=== PATIENT | male | born 1965 | race American Indian/Alaskan Native ===

== ENCOUNTER 2020-12-21 12:44 | Emergency (ER) | payer BC ==
[2020-12-21 13:24] VITALS: BP 100/71
[2020-12-21 14:27] LABS: Bilirubin,Urine NEG (Negative); Blood,Urine NEG (Negative); Color,Urine Yellow (Yellow); Mucus,Urine 2+ /HPF; Protein,Urine <15 mg/dL mg/dL (Negative)
[2020-12-21 14:57] LABS: Basophils # (Auto) 0.1 K/mm3 (0.0-0.1); Basophils % (Auto) 0.9 % (0.0-1.8); Eosinophils # (Auto) 0.1 K/mm3 (0.0-0.4); Hematocrit 51.6 % (35.5-45.6); Hemoglobin 17.2 gm/dl (11.8-15.2); Lymphocytes # (Auto) 3.4 K/mm3 (1.2-5.4); Lymphocytes % (Auto) 39.9 % (13.4-35.0); Mean Corpuscular HGB Conc 33 % (32-34); Mean Corpuscular Volume 87 fl (84-94); Monocytes # (Auto) 0.5 K/mm3 (0.0-0.8); Monocytes % (Auto) 5.8 % (0.0-7.3); Platelet Count 282 K/mm3 (140-440); Red Blood Count 5.95 M/mm3 (3.65-5.03); Red Cell Distribution Width 13.7 % (13.2-15.2)
[2020-12-21 15:10] LABS: Albumin 4.3 g/dL (3.9-5); Calcium 9.8 mg/dL (8.4-10.2)
[2020-12-21] MEDS ORDERED: LIDOCAINE-MPF (1%) 10 MG/1 ML VIAL 5 ML INFILTRATI ONE (18:26)
--- NOTE | 2020-12-21 18:31 | Emergency Department Report ---
ED General Adult HPI - General Chief complaint: Abdominal Pain Stated complaint: STOMACH PAIN Time Seen by Provider: 12/21/20 18:26 Source: patient Mode of arrival: Ambulatory Limitations: No Limitations - History of Present Illness Initial comments: 55-year-old male patient presents to the emergency department with complaints of abdominal pain for 1 month. Patient states the pain is generalized, intermittent, without exacerbating or relieving factors identified. Pain is no different today. States he came to the emergency department because "he was sick of going to work feeling this way." Patient does not have a primary care provider. Patient is sexually active. Denies fever, chills, nausea, vomiting, diarrhea, constipation, black/bloody stools, testicular pain/swelling, painful urination, penile discharge, hematuria, night sweats, unintentional weight loss. Denies all other complaints at this time. - Related Data Previous Rx's Medication Instructions Recorded Last Taken Type Doxycycline Hyclate 100 mg PO BID 7 Days tablet. 12/21/20 Unknown Rx Allergies Allergy/AdvReac Type Severity Reaction Status Date / Time No Known Allergies Allergy Unverified 12/21/20 13:20 ED Review of Systems ROS: Stated complaint: STOMACH PAIN Other details as noted in HPI Other: GENERAL: Negative for fever, chills, weight change, anorexia, fatigue. ENT: Negative for ear pain, difficulty hearing, sore throat, nasal congestion, epistaxis. CARDIOVASCULAR: Negative for chest pain, palpitations, lower extremity swelling. PULMONARY: Negative for cough, dyspnea, wheezing, orthopnea, cyanosis. GASTROINTESTINAL: Positive for abdominal pain. MUSCULOSKELETAL: Negative for joint pain, joint swelling, myalgias, back pain, neck pain. NEUROLOGICAL: Negative for headache, seizure, syncope, paresthesias, weakness. INTEGUMENTARY: Negative for erythema, rash, diaphoresis, laceration, ecchymosis. HEMATOLOGICAL: Negative for hemoptysis, hematemesis, hematochezia, hematuria. PSYCHIATRIC: Negative for hallucinations, suicidal ideation, homicidal ideation, anxiety, depression. ED Past Medical Hx - Past Medical History Previous Medical History?: No - Surgical History Additional Surgical History: BACK/ NECK AND FOREHEAD SURGERY - Medications Home Medications: Home Medications Medication Instructions Recorded Confirmed Last Taken Type Doxycycline Hyclate 100 mg PO BID 7 Days tablet. 12/21/20 Unknown Rx ED Physical Exam - General Limitations: No Limitations - Other Other exam information: General: Awake and alert. No acute distress. Head: Atraumatic, normocephalic. Eyes: EOMI. Pupils are equal and round. Normal sclera and conjunctiva. ENT: Oral mucosa is moist. Normal pharyngeal exam. Neck: Supple. No lymphadenopathy. Pulmonary: No respiratory distress. Clear to auscultation bilaterally. Cardiac: Regular rate and rhythm. Pulses are palpable and equal bilaterally. No lower extremity cyanosis or edema. Skin: Warm and dry. No rashes. Abdomen: Soft, non-tender, non-protuberant. No guarding, rigidity, or rebound. Bowel sounds are normal. No organomegaly or masses noted. Back: Normal alignment. No CVA tenderness. Extremities: Symmetrical. Full range of motion intact. Neurological: Alert and oriented, appropriately interactive, no focal deficits. Psych: Cooperative. Appropriate mood and affect. Speech is evenly metered. Thoughts are logically construed. ED Course Vital Signs 12/21/20 13:23 Temperature 99.0 F Pulse Rate 73 Respiratory 18 Rate Blood Pressure 100/71 O2 Sat by Pulse 97 Oximetry ED Medical Decision Making - Lab Data Result diagrams: 12/21/20 13:56 12/21/20 13:56 - Medical Decision Making Differential diagnosis including but not limited to: pyelonephritis, prostatitis, nephrolithiasis, urinary tract infection, sexually transmitted infection Patient presents to the emergency department with complaints of intermittent generalized abdominal pain for 1 month, unchanged today. He is afebrile. Vital signs are stable. Abdominal exam is benign. Labs are unremarkable. Urinalysis with evidence of UTI. No fever, nausea, vomiting, or CVA tenderness to suggest pyelonephritis. Patient is sexually active. He does not have a history of prior UTI's or genitourinary issues. STD testing is currently unavailable at this facility. Urine culture sent. Given IM Rocephin and discharged home with prescription for Doxycycline per current CDC guidelines. Referred to primary care provider for close outpatient follow-up and repeat urinalysis. Also referred to [facility] for STD testing and treatment as in dicated. Patient expressed understanding and is agreeable to plan of care. Strict return precautions provided. History, exam, diagnostic testing, and current condition do not suggest worrisome pathology to warrant further testing, continued ED treatment, admission, or surgical evaluation at this point. Given the low probability of a significant medical illness, it would be more likely to result in harm than benefit to perform further testing at this stage. Discussed findings, presumptive diagnosis, need for follow-up and specific signs/symptoms that should prompt immediate return to the emergency department. Instructions were explained in detail to the patient in addition to giving written discharge information. Patient expressed understanding and was given the opportunity to ask questions, all of which were satisfactorily answered prior to discharge home. Critical care attestation.: If time is entered above; I have spent that time in minutes in the direct care of this critically ill patient, excluding procedure time. ED Disposition Clinical Impression: Nonspecific urethritis Disposition: 01 HOME / SELF CARE / HOMELESS Is pt being admited?: No Does the pt Need Aspirin: No Condition: Stable Instructions: Urethritis, Adult Additional Instructions: Take Tylenol every 4 hours and Motrin every 8 hours as needed for pain. Take Doxycycline with food as directed. Avoid prolonged sun exposure while taking this medication. Increase your dietary intake of probiotic rich foods while taking this medication. Please use barrier protection when engaging in sexual intercourse. Follow-up with primary care provider and [facility]. Call tomorrow to schedule an appointment. See referral information below. Return to the emergency department immediately for new or worsening symptoms. Prescriptions: Doxycycline Hyclate 100 mg PO BID 7 Days tablet. Referrals: HONEY SHEA MD [Staff Physician] - 3-5 Days [facility] [Provider Group] - 3-5 Days Forms: STI Treatment and Prevention Time of Disposition: 18:31
== END 2020-12-21 19:13 | disposition home or self-care (01) ==
LOC: ED 12:44
DX: N34.1 Nonspecific urethritis (principal); Z79.899 Other long term (current) drug therapy; Z98.890 Other specified postprocedural states
CPT/HCPCS: 36415; 80053; 81001; 85025; 87086; 96372; 99283; J0696

== ENCOUNTER 2021-04-01 14:55 | Emergency (ER) | payer SELFPAY ==
[2021-04-01 15:07] VITALS: BP 112/80
[2021-04-01] MEDS ORDERED: IBUPROFEN 600 MG TAB PO ONE (15:28)
[2021-04-01] MEDS ORDERED: oxyCODONE /ACETAMINOPHEN 5-325MG TAB PO ONE (15:28)
--- NOTE | 2021-04-01 15:59 | XRay Report ---
Right leg-4 views INDICATION: Right leg trauma. COMPARISON: None. IMPRESSION: No acute osseous abnormality. Soft tissues are normal. Normal alignment. No significa nt DJD. Signer Name: Huey Davalos MD Signed: 04/01/2021 3:55 PM Workstation Name: [id number]
--- NOTE | 2021-04-01 16:22 | Emergency Department Report ---
ED Lower Extremity HPI - General Chief Complaint: Extremity Injury, Lower Stated Complaint: RIGHT LEG INJURY Time Seen by Provider: 04/01/21 15:08 Source: patient Mode of arrival: Wheelchair Limitations: No Limitations - History of Present Illness Initial Comments: The patient was evaluated in the emergency department for symptoms described in the history of present illness. He/she was evaluated in the context of the global COVID-19 pandemic, which necessitated consideration that the patient might be at risk for infection with the virus that causes COVID-19. Institutional protocols and algorithms that pertain to the evaluation of patients at risk for COVID-19 are in a state of rapid change based on information released by regulatory bodies including the CDC and federal and state organizations. These policies and algorithms were followed during the patient's care in the emergency department. Please note that these policies, procedures and recommendations changed on a rapid basis. 55-year-old -[place] male presents to the emergency room for right lower leg injury while at work. Patient states that his leg got pinned up between a wall and the bobcat excavator. Patient comes in with right lower leg bruising abrasion mild swelling and pain. Patient denies any other past medical history currently takes no meds on a daily basis. MD Complaint: leg injury -: This afternoon Injury: Leg: Right Type of Injury: blunt Place: work Severity scale (0 -10): 9 Worsens With: weight bearing, movement, palpation Context: direct blow Associated Symptoms: swelling, able to partially bear weight - Related Data Previous Rx's Medication Instructions Recorded Last Taken Type Doxycycline Hyclate 100 mg PO BID 7 Days tablet. 12/21/20 Unknown Rx Allergies Allergy/AdvReac Type Severity Reaction Status Date / Time No Known Allergies Allergy Unverified 12/21/20 13:20 ED Review of Systems ROS: Stated complaint: RIGHT LEG INJURY Other details as noted in HPI Comment: All other systems reviewed and negative ED Past Medical Hx - Surgical History Additional Surgical History: BACK/ NECK AND FOREHEAD SURGERY - Social History Smoking Status: Current Every Day Smoker Substance Use Type: None - Medications Home Medications: Home Medications Medication Instructions Recorded Confirmed Last Taken Type Doxycycline Hyclate 100 mg PO BID 7 Days tablet. 12/21/20 Unknown Rx ED Physical Exam - General Limitations: No Limitations General appearance: alert, in no apparent distress - Head Head exam: Present: atraumatic, normocephalic - Eye Eye exam: Present: normal appearance - ENT ENT exam: Present: mucous membranes moist - Neck Neck exam: Present: normal inspection - Respiratory Respiratory exam: Present: normal lung sounds bilaterally. Absent: respiratory distress - Cardiovascular Cardiovascular Exam: Present: regular rate, normal rhythm. Absent: systolic murmur, diastolic murmur, rubs, gallop - GI/Abdominal GI/Abdominal exam: Present: soft, normal bowel sounds - Rectal Rectal exam: Present: deferred - Extremities Exam Extremities exam: Present: normal inspection - Expanded Lower Extremity Exam Right Hip exam: Present: normal inspection, full ROM Upper Leg exam: Present: normal inspection, full ROM Lower Leg exam: Present: full ROM, tenderness, swelling, abrasion Ankle exam: Present: normal inspection, full ROM Gait: Positive: observed and limited by pain - Back Exam Back exam: Present: normal inspection - Neurological Exam Neurological exam: Present: alert, oriented X3, CN II-XII intact - Psychiatric Psychiatric exam: Present: normal affect, normal mood. Absent: homicidal ideation, suicidal ideation - Skin Skin exam: Present: warm, dry, intact, normal color. Absent: rash ED Course Vital Signs 04/01/21 15:06 Temperature 98.9 F Pulse Rate 81 Respiratory 20 Rate Blood Pressure 112/80 [Right] O2 Sat by Pulse 98 Oximetry ED Lower Extremity MDM - Radiology Data Radiology results: report reviewed [address] [address] XRay Report Signed Patient: CLYDE ARMENTA MR#: [id number] : 1965 Acct:[id number] Age/Sex: 55 / M ADM Date: 04/01/21 Loc: ED Attending Dr: Ordering Physician: GLADYS HERRMANN Date of Service: 04/01/21 Procedure(s): XR tibia fibula 2V RT Accession Number(s): [id number] cc: GLADYS HERRMANN Fluoro Time In Minutes: Right leg-4 views INDICATION: Right leg trauma. COMPARISON: None. IMPRESSION: No acute osseous abnormality. Soft tissues are normal. Normal alignment. No significant DJD. Signer Name: Huey Davalos MD Signed: 04/01/2021 3:55 PM Workstation Name: [id number] Transcribed By: KYLER Dictated By: Huey Davalos MD Electronically Authenticated By: Huey Davalos MD Signed Date/Time: 04/01/211554 DD/ 54 TD/TT: Print - Medical Decision Making 55-year-old -[place] male presents to the emergency room for right lower leg injury while at work. Patient states that his leg got pinned up between a wall and the bobcat excavator. Patient comes in with right lower leg bruising abrasion mild swelling and pain. Patient denies any other past medical history currently takes no meds on a daily basis. X-ray of right tib-fib was ordered. Pain medication administered. X-ray is negative for any abnormalities. Patient to put ice on it pain medication and rest. Critical care attestation.: If time is entered above; I have spent that time in minutes in the direct care of this critically ill patient, excluding procedure time. ED Disposition Clinical Impression: Injury of right lower extremity, Contusion of right lower leg, initial encounter Disposition: HOME / SELF CARE / HOMELESS Is pt being admited?: No Does the pt Need Aspirin: No Condition: Stable Instructions: Contusion, [id number] Additional Instructions: X-ray is negative for any abnormalities. I would like for you to apply ice for no longer than 20 minutes for every 2 hours pain medication such as Tylenol or ibuprofen. Elevate rest and follow-up with your primary care provider. Referrals: BAKARI URIBE MD [Primary Care Provider] - 3-5 Days CHRIS HAHN MD [Staff Physician] - 3-5 Days Forms: Work/School Release Form(ED) Time of Disposition: 16:22
== END 2021-04-01 16:35 | disposition home or self-care (01) ==
LOC: ED 14:55
DX: S80.11XA Contusion of right lower leg, initial encounter (principal); W22.8XXA Striking against or struck by other objects, initial encounter; Y93.89 Activity, other specified; Y92.89 Other specified places as the place of occurrence of the external cause; Y99.8 Other external cause status
CPT/HCPCS: 99283